=== PATIENT | female | born 1960 | race Caucasian/White ===

== ENCOUNTER → 2018-11-01 | Outpatient (CLI) | payer SELFPAY | LOC: COL.VAS 08:45 | DX: M79.89 Other specified soft tissue disorders (principal); L53.9 Erythematous condition, unspecified ==

== ENCOUNTER 2018-12-17 16:31 | Emergency (ER) | payer BC ==
[~2018-12-17] VITALS: Ht 170.2 cm; Wt 77.3 kg
[2018-12-17 16:51] VITALS: BP 116/68; TEMP 97.9
[2018-12-17] MEDS ORDERED: MULTI VITAMINS1 TAB PO (18:49)
[2018-12-17] MEDS ORDERED: PRIL40 PO (18:49)
[2018-12-17] MEDS ORDERED: NATURAL IRON65 MG (18:49)
[2018-12-17] MEDS ORDERED: LASIX 20MG TABL20 MG PO (18:49)
[2018-12-17] MEDS ORDERED: NORCO 325 MG-51 TAB PO (18:57)
[2018-12-17 19:40] VITALS: PULSE 74
== END 2018-12-17 19:27 | disposition home or self-care (01) ==
LOC: COL.ER 16:31
DX: S42.201A Unspecified fracture of upper end of right humerus, initial encounter for closed fracture (principal); W00.0XXA Fall on same level due to ice and snow, initial encounter; Y92.59 Other trade areas as the place of occurrence of the external cause

== ENCOUNTER → 2020-10-26 | Outpatient (CLI) | payer SELFPAY ==
[~2020-10-26] MED LIST: LASIX 20MG TABL20 MG PO; MULTI VITAMINS1 TAB PO; NATURAL IRON65 MG; NORCO 325 MG-51 TAB PO; PRIL40 PO
== END ==
LOC: ZCOL.LAB 19:38
DX: Z20.828 Contact with and (suspected) exposure to other viral communicable diseases (principal)

== ENCOUNTER 2022-06-25 15:57 | Emergency (ER) | payer SELFPAY ==
[~2022-06-25] VITALS: Ht 170.2 cm; Wt 90.9 kg
[2022-06-25 16:09] VITALS: TEMP 98.2
[2022-06-25 17:42] VITALS: BP 101/77; PULSE 67
== END 2022-06-25 17:42 | disposition home or self-care (01) ==
LOC: COL.ER 15:57
DX: F41.9 Anxiety disorder, unspecified (principal); Z79.899 Other long term (current) drug therapy

== ENCOUNTER 2022-06-28 20:48 | Emergency (ER) | payer SELFPAY ==
[~2022-06-28] VITALS: Ht 170.2 cm; Wt 90.9 kg
[2022-06-28 20:54] VITALS: BP 134/75; TEMP 98.1
[2022-06-28] MEDS ORDERED: ATIVAN 0.50.5 MG/TAB PO ×3 (21:26→21:40)
[2022-06-28 21:59] VITALS: PULSE 76
== END 2022-06-28 22:00 | disposition home or self-care (01) ==
LOC: COL.ER 20:48
DX: F41.9 Anxiety disorder, unspecified (principal)

== ENCOUNTER 2022-07-12 10:27 | Emergency (ER) | payer SELFPAY ==
[~2022-07-12] VITALS: Ht 170.2 cm; Wt 88.6 kg
[~2022-07-12 10:27] MED LIST changes: +ATIVAN 0.50.5 MG/TAB PO
[2022-07-12 10:35] VITALS: TEMP 97.4
[2022-07-12] MEDS ORDERED: BUSPAR10 MG PO (10:43)
[2022-07-12] MEDS ORDERED: AMBIEN 5MG TABLE5 MG PO (11:04)
[2022-07-12] MEDS ORDERED: ABILIFY5 MG PO (11:05)
[2022-07-12] MEDS ORDERED: SEROQUEL 1100 MG/TAB PO (11:05)
[2022-07-12 14:16] VITALS: BP 131/82; PULSE 79
--- NOTE | 2022-07-13 07:49 | NUR ---
On 07/12/2022, second time worker met with patient's emergency room provider and discussed medication administration through [facility]. Patient was confirmed, by Gene to have been seen on 07/04/22 and given a 30 day prescription of Buspar. Patient also was confirmed to have a follow up appointment scheduled for 08/01/22. Worker contacted Denisha Morton and requested that Gene's provider make contact with our provider to discuss concerns related to patient's prescriptions and plan of care.
== END 2022-07-12 14:18 | disposition home or self-care (01) ==
LOC: COL.ER 10:27
DX: F41.8 Other specified anxiety disorders (principal)

== ENCOUNTER 2022-07-23 14:13 | Emergency (ER) | payer SELFPAY ==
[~2022-07-23] VITALS: Ht 261.6 cm; Wt 84.1 kg
[~2022-07-23 14:13] MED LIST changes: +ABILIFY5 MG PO; +AMBIEN 5MG TABLE5 MG PO; +BUSPAR10 MG PO; +SEROQUEL 1100 MG/TAB PO
[2022-07-23 14:36] VITALS: TEMP 98.2
[2022-07-23] MEDS ORDERED: ATIVAN 1MG T1 MG/TAB PO (16:18)
[2022-07-23 16:32] VITALS: BP 116/86; PULSE 84
== END 2022-07-23 16:30 | disposition home or self-care (01) ==
LOC: COL.ER 14:13
DX: F41.9 Anxiety disorder, unspecified (principal)